=== PATIENT | female | born 1985 | race Caucasian/White ===

== ENCOUNTER 2017-09-28 03:47 | Inpatient (IN) ==
--- OUTSIDE RECORDS SUMMARY | 2017-09-28 06:12 | External Medical Summary | Continuity of Care Document ---
:1985 Author Organization [facility] Address [address] [place], [place] [id number] Phone Care Team Providers Name Role Phone Mark Ring MD Unavailable Unavailable Allergies, Adverse Reactions, Alerts Substance Reaction Severity Status iodine Hives Unknown Active Medications Medication Instructions Dosage Effective Dates Status Comments (start - stop) Rhophylac 1,500 - Active unit (300 mcg)/2 mL injection syringe 28 mg take 1 tablet by Not Available - Active iron-800 mcg oral route every tablet day Clindagel 1 % apply by topical Not Available - Active Topical route every day a thin layer to the affected area(s) Tylenol 325 mg take 1 tablet by - Active tablet oral route every 4 hours as needed lidocaine 2 % apply by Topical Not Available - No Longer mucosal jelly route every 6 Active hours as needed Problems Condition Effective Dates (start - stop) Clinical Status Follow-Up, Routine - Encntr for insulator apprentice exam (general) - (routine) w/o abn findings Oth related conditions, - third trimester Encounter For Screening For - Streptococcus B 36 weeks gestation of - Secondary amenorrhea Encounter for suprvsn of normal - , first trimester 13 weeks gestation of - Encounter for suprvsn of normal - , third trimester 28 weeks gestation of - Type O blood, Rh negative - Sciatica, left side - Sciatica, left side - Unspecified Lump In The Right Breast, - Unspecified Quadrant 34 weeks gestation of - Irregular Menses Pap Smear Screening, Cervix - Encounter for suprvsn of normal - , second trimester 20 weeks gestation of - Encounter for suprvsn of normal - , second trimester 24 weeks gestation of - Encounter for suprvsn of normal - , second trimester 16 weeks gestation of - Encounter for suprvsn of normal - , third trimester 30 weeks gestation of - Encounter for suprvsn of normal - , third trimester 34 weeks gestation of - Encounter for suprvsn of normal - , third trimester 37 weeks gestation of - Encounter for suprvsn of normal - , third trimester 38 weeks gestation of - Encounter for suprvsn of normal - , third trimester 32 weeks gestation of - Encounter For Screening For - Malformations 20 weeks gestation of - Active Procedures Procedure Date Immuniz admnin, 1 vac, sngl/combo 19 Yrs + TDAP VACCINE >7 IM OB Visit No Charge Results Test Name Date and Time Measure Units Reference Range Abnormal Flag Comments Panel Description: Bacteria identified in Urine by Culture Urine Culture, 16:38:00 Final report Routine Result 1 16:38:00 Comment Culture shows less than 10,000 colony forming units of bacteria permilliliter of urine. This colony count is not generally consideredto be clinically significant. Panel Description: Strep Gp B Culture Strep Gp B Negative Negative Centers for Disease Control Culture 16:38:00 and Prevention (CDC) and [place] Congressof Obstetricians and Gynecologists (ACOG) guidelines for prevention ofperinatal group B streptococcal (GBS) disease specify co-collection ofa vaginal and rectal swab specimen to maximize sensitivity of GBSdetection. Per the CDC and ACOG, swabbing both the lower vagina andrectum substantially increases the yield of detection compared withsampling the vagina alone. .Penicillin G, ampicillin, or cefazolin are indicated for intrapartumprophylaxis of GBS colonization. Reflex susceptibilitytesting should be performed prior to use of clindamycin only on GBSisolates from penicillin-allergic women who are considered a high riskfor anaphylaxis. Treatment with vancomycin without additional testingis warranted if resistance to clindamycin is noted. Advance Directives Directive Yes / No Effective Date File Name Unknown Encounters Encounter Practice Location Reason(s) Diagnoses Date Provider Care Team Description For Visit Members Kerri Maynard Encounter for Sep-1 Jose Referring In Womens suprvsn of normal 7-[address] [place]. 700 Provider: [facility] [place], , third 8 [facility] Box [email or web address] weeks Center Jose R, 1522, gestation of [place], 120, Medical [facility] [id number], [place], [facility] 120, [place] [id number] Caesar, tel: , . CHARIS, tel: [phone]. [id number] tel:[phone] Kerri Maynard Encounter for Sep-1 Jose Referring In Womens suprvsn of normal 0-201 [place]. 700 Provider: [facility] [place], , third 8 [facility] Box [email or web address] weeks Center Jose R, 1522, gestation of [place], 120, Medical [facility] [id number], [place], [facility] 120, [place] [id number] Caesar, tel: , . CHARIS, tel: [phone]. [phone] tel:[phone] Kerri Maynard Ot Boom-0 Jose Referring In Womens related 3-201 [place]. 700 Provider: [facility] [place], conditions, third 8 [facility] Box trimesterEncounte Center Jose R, 1522, r For [place], Screening For 120, Medical CHARIS, [facility] [id number], weeks gestation [place], [place], [place] of [id number] Caesar, tel: , [place]. [place], tel: [phone]. [id number] tel:[phone] Kerri Maynard Unspecified Lump Edilberto-2 Jose Referring In Womens In The Right 0-201 [place]. 700 Provider: Health [place], Breast, 8 Medical [place] PO Box Unspecified Center Jose R, 1522, [id number] weeks [place], gestation of 120, Medical [place], [place], [place] [id number], [place], [place], [place] [id number] Caesar, tel: , [place]. [place], tel: [phone]. [id number] tel:[phone] Kerri Maynard Encounter for Edilberto-1 Jose Referring In Womens suprvsn of normal 9-201 [place]. 700 Provider: Health [place], , third 8 Medical [place] PO Box [email or web address] weeks Center Jose Granado, 1522, gestation of [place], 120, Medical [facility] [id number], [place], [place], [place] [id number] Caesar, tel: , [place]. [place], tel: [phone]. [id number] tel:[phone] Kerri Maynard Encounter for Edilberto-0 Jose Referring In Womens suprvsn of normal 5-201 [place]. 700 Provider: Health [place], , third 8 Medical [place] PO Box [email or web address] weeks Center Jose Granado, 1522, gestation of [place], 120, Medical [facility] [id number], [place], [place], [place] [id number] Caesar, tel: , [place]. [place], tel: [phone]. [id number] tel:[phone] Kerri Maynard Encounter for May-2 Jose Referring In Womens suprvsn of normal 2-201 [place]. 700 Provider: Health [place], , third 8 Medical [place] PO Box [email or web address] weeks Center Jose Granado, 1522, gestation of [place], 120, Medical [facility] [id number], [place], [place], [place] [id number] Caesar, tel: , [place]. [place], tel: [phone]. [id number] tel:[phone] Kerri Maynard Encounter for May-0 Jose Referring In Womens suprvsn of normal 8-201 [place]. 700 Provider: [facility] [place], , third 8 Medical [place] PO Box [id number] weeks Center Jose R, 1522, gestation of [place], pregnancyType O 120, Medical [place], blood, Rh [place], [place] [id number], negative [place], [place] 120, [place] [id number] [place], tel: , [place]. [place], tel: [phone]. [id number] tel:[phone] Kerri Maynard Encounter for Apr-1 Jose Referring In Womens suprvsn of normal 0-201 [place]. 700 Provider: [facility] [place], , second 8 Medical [place] PO Box [email or web address] weeks Center Jose R, 1522, gestation of [place], 120, Medical [facility] [id number], [place], [place], [place] [id number] Caesar, tel: , [place]. [place], tel: [phone]. [id number] tel:[phone] Kerri Maynard Encounter for Mar-1 Jose Referring In Womens suprvsn of normal 4-201 [place]. 700 Provider: [facility] [place], , second 8 Medical [place] PO Box [email or web address] weeks Center Jose R, 1522, gestation of [place], 120, Medical [place] VIZCA[place], [place] [id number], [place], [place], [place] [id number] [place], tel: , [place]. [place], tel: [phone]. [phone] tel:[phone] Kerri Maynard Encounter For Mar-1 Jose Referring In Womens Ultrasound 4-201 [place]. 700 Provider: Health [place], Screening For 8 Medical [place] PO Box [id number] Center Jose R, 1522, weeks gestation [place], of 120, Medical [place] VIZCAINO, [place] [id number], [place], [place], [place] [id number] Caesar, tel: , [place]. [place], tel: [phone]. [id number] tel:[phone] Kerri Maynard Encounter for Apr- Jose Referring In Womens suprvsn of normal 5-201 [place]. 700 Provider: Health [place], , second 8 Medical [place] PO Box [id number] weeks Center Jose Granado, 1522, gestation of [place], 120, Medical [facility] [id number], [place], [place], [place] [id number] Caesar, tel:+ , [place]. [place], tel: [phone]. [id number] tel:[phone] Kerri Maynard Encounter for Mar- Jose Referring In Womens suprvsn of normal 5-201 [place]. 700 Provider: Neisha GIORDANO, , first 8 Medical [place] PO Box [email or web address] weeks Center Jose Granado, 1522, gestation of [place], 120, Medical [place] [facility] [id number], [place], [facility] 120, [place] [id number] Caesar, tel: , [place]. [place], tel: [phone]. [id number] tel:[phone] Kerri Maynard Dec-1 Jose In Womens 5-201 [place]. 700 Health [place], 7 [facility] PO Box Center 1522, [place], 120, [place] VIZCAINO, [id number], [place], [place] [id number] tel: , [place]. tel: [phone] Kerri Maynard Secondary Dec-0 Jose Referring In Womens amenorrhea 6-201 [place]. 700 Provider: Neisha GIORDANO, 7 [facility] PO Box [place] Jose Granado 1522, [place], 120, Medical [place] VIZCA[place], [place] [id number], [place], [facility] 120, [place] [id number] Caesar, tel: , [place]. [place], tel: [phone]. [id number] tel:[phone] Kerri Maynard Irregular Menses Nov-3 Reynolds Referring In Womens 0-201 [facility]. Provider: Health [place], [address] [place] [address] Jose R, 1522, [address], [facility], 120, Center [id number], [place], [facility] 120, [place] VIZCAINO, tel:[phone] [place], , [place]. [id number]. tel: tel:[phone] [facility] Mar-0 Jose Referring In Womens Follow-Up, 7-201 [place]. 700 Provider: Neisha GIORDANO, Routine 7 [facility] Jose R, 1522, , [place] [address] [place], 120, Medical [place] [facility] [id number], [place], [facility] 120, [place] [id number] Caesar, tel: , [place]. [place], tel: [phone]. [id number] tel:[phone] [facility] Sciatica, left Javier-1 Ojse Referring In Womens side 2-201 [place]. 700 Provider: Neisha GIORDANO, 7 [facility] Jose R, 1522, , [place] [address] [place], 120, Medical [facility] [id number], [place], [facility] 120, [place] [id number] Caesar, tel: , [place]. [place], tel: [phone]. [id number] tel:[phone] [facility] Javier-0 Jose Referring In Womens 3-201 [place]. 700 Provider: Neisha GIORDANO, 7 [facility] Jose R, 1522, , [place], 120, Medical [place] [facility] [id number], [place], [facility] 120, [place] [id number] Caesar, tel: , [place]. [place], tel: [phone]. [id number] tel:[phone] [facility] Sciatica, left Dec-2 Jose Referring In Womens side 7-201 [place]. 700 Provider: Neisha GIORDANO, 6 [facility] Jose R, 1522, , [place] [address] [place], 120, Medical [place] [facility] [id number], [place], [place], [place] [id number] Caesar, tel: , [place]. [place], tel: [phone]. [id number] tel:[phone] Kerri Maynard Oct-2 Jose Referring In Womens 5-201 [place]. 700 Provider: Neisha GIORDANO, 6 [facility] Box Center Jose Granado, 1522, , [place] [address] [place], 120, Medical [place] [facility] [id number], [place], [place], [place] [id number] Caesar, tel: , [place]. [place], tel: [phone]. [id number] tel:[phone] Kerri Maynard Sep-2 Jose Referring In Womens 7-201 [place]. 700 Provider: Neisha GIORDANO, 6 [facility] Jose Granado, 1522, , [place] [facility] [place], 120, Medical [place] [facility] [id number], [place], [place], [place] [id number] Caesar, tel:+ , [place]. [place], tel: [phone]. 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 700 Provider: Health [place], (routine) w/o abn 5 [facility] findingsPap Smear Center Jose Granado, 1522, Screening, Cervix , [place] [address] [place], 120, Medical [facility] [id number], [place], [place], [place] [id number] Caesar, tel: , [place]. [place], tel: [phone]. [phone] tel:[phone] Kerri Maynard Sep-0 Jose Referring In Womens 9-201 [place]. 700 Provider: Neisha GIORDANO, 5 [facility] Box Center Jose Granado, 1522, , [place] [address], 120, Medical [place] [facility] [id number], [place], [place], [place] [id number] Caesar, tel: , [place]. [place], tel: [phone]. [id number] tel:[phone] Kerri Maynard Nov-3 Jose In Womens 0-201 [place]. 700 Health [place], 1 Medical PO Box Center 1522, , [place], 120, [place], [place], [id number], [place], [id number] tel: , . [id number] tel: [phone] Kerri Maynard Dec- Jose In Womens 8-200 [place]. 700 Health [place], 7 Medical PO Box Center 1522, , [place], 120, [place], [place], [id number], [place], [id number] tel: , . [id number] tel: [phone] Family History Family Member Diagnosis Age At Onset No family history of Cardiovascular Disease Maternal Grandfather Diabetes mellitus No family history of Stroke No family history of Breast Cancer No family history of Ovarian Cancer Paternal Grandfather Cancer, lung No family history of Epilepsy Mother Thyroid Disorder Brother Blood Disorder No family history of Colon Cancer Father Hypercholesterolemia No family history of Osteoporosis Mother Hyperlipidemia No family history of Kidney Problems Maternal Grandfather Myocardial Infarction Immunizations Vaccine Date Status Comments Tdap completed Source: New Immunization Record Rhophylac completed Source: New Immunization Record Influenza, injectable, completed Note: Howard Moreno ; Source: quadrivalent, preservative free, Other Provider 3 yrs or older Tdap completed Source: New Immunization Record Rhophylac completed Source: New Immunization Record Influenza, injectable, completed Source: New Immunization Record quadrivalent, preservative free, 3 yrs or older Rhophylac completed Source: New Immunization Record Payers Payer name Insurance type Covered libertarian ID Authorization(s) UMR CI [id number] UMR CI [id number] UMR CI [id number] [place] [id number] UMR CI [id number] UMR CI [id number] UMR CI [id number] Social History Type Description Quantity Date Captured Alcohol Use Details No Caffeine Use Details Unknown Tobacco Use Status Unknown Smoking Status Never smoker Vital Signs Date / Height Weight BMI Pulse Blood Temperature Respiratory Body Head BMI Time: Rate Pressure Rate Surface Circumference percentile Area 218.90 32.8 134/86 -2018 lbs 0 mm[Hg] 4:48 kg/m PM eter (2) Chief Complaint And Reason For Visit Unknown Chief Complaint And Reason For Visit Reason For Referral Reason For Referral Unknown Plan Of Care Date Type Action Status Appointment Margie Mayra BOOKED Future Order: Radiology Order Breast Ultrasound Right Breast Ordered ([id number]) Future Order: Lab Order hCG,Beta Subunit, Qnt, Serum Ordered ([id number]) Future Order: Lab Order Pap Smear With HPV Reflex If ASCUS Ordered ([id number]) Future Order: Radiology Order Diagnostic Mammogram Right Breast, Ordered if indicated ([id number]) Future Order: Radiology Order Breast Ultrasound Right Breast Ordered ([id number]) Future Order: Radiology Order Complete OB Ultrasound > 14 Weeks Ordered ([id number]) Date Type Problem Goal Intervention Status Start Date Unknown. History Of Present Illness Encounter Date Complaint History Of Present Illness This patient has no known history of present illness Functional Status Encounter Date Functional Assessment Cognitive Assessment Unknown Medications Administered Medication Instructions Dosage Effective Dates (start - stop) Status Comments Drug Treatment Unknown Instructions Date Instruction Additional Information nutrition and weight gain counseling, special diet toxoplasmosis precautions (cats / raw meat) sexual activity exercise indications for ultrasound influenza vaccine environmental / work hazards travel use of any medications (including supplements, vitamins, herbs, OTC drugs) domestic violence seat belt use childbirth classes / hospital facilities hospital registration genetic testing new ob handbook HIV and other routine tests risk factors identified by history anticipated course of care
[2017-09-28] MEDS ORDERED: D5LR 1,000 ML IV PRN ×2 (06:14→06:16)
[2017-09-28] MEDS ORDERED: ACETAMINOPHEN 500 MG TABLET PO PRN ×2 (06:14→12:24)
[2017-09-28] MEDS ORDERED: MAG-AL + SIM ORAL LIQUID 30ml PO PRN ×2 (06:14→12:24)
[2017-09-28] MEDS ORDERED: CALCIUM CARBONATE Chewable 500mg TABLET PO PRN ×2 (06:14→12:24)
[2017-09-28] MEDS ORDERED: CARBOPROST 250 MCG/ML INJECTION IM PRN (06:14)
[2017-09-28] MEDS ORDERED: METHYLERGONOVINE 0.2 MG/ML INJECTION IM PRN (06:14)
[2017-09-28] MEDS ORDERED: LIDOCAINE 1% (10mg/ml) 2mL INJ PF SDV ID PRN (06:14)
[2017-09-28] MEDS ORDERED: OXYTOCIN DRIP 30 UNIT/500 ML ML IV PRN (06:16)
[2017-09-28] MEDS: LR 1,000 ML IV PRN ×2 (06:52→07:34)
[2017-09-28 06:56] VITALS: BMI 36.1
[2017-09-28 07:02] VITALS: O2SAT 99
[2017-09-28] MEDS ORDERED: DiphenhydrAMINE 50 MG/ML INJECTION IVP PRN ×2 (08:36→10:33)
[2017-09-28] MEDS ORDERED: ONDANSETRON 4 MG/2 ML INJECTION IVP PRN ×2 (08:36→10:33)
[2017-09-28] MEDS ORDERED: NALOXONE 0.4 MG/ML INJECTION IVP PRN ×2 (08:36→10:33)
[2017-09-28] MEDS ORDERED: ROPIVACAINE 1% 10MG/ML INJ 200 MG, SUFentanil 50 MCG in NS 100 ML EPI PRN (08:36)
--- NOTE | 2017-09-28 08:36 | Anesthesia Preoperative Report ---
Anesthesia Preoperative Record - Date and Time Date: 09/28/17 Preoperative Diagnosis: NPO Since Date: 09/28/17 NPO Since Time: 04:00 Allergies/Adverse Reactions: Allergies Allergy/AdvReac Type Severity Reaction Status Date / Time iodine Allergy Mild IV-HIVES Verified 03/26/16 23:54 - Vital Signs Vital Signs: Pulse Rate 79 09/28/17 06:57 Respiratory Rate 18 09/28/17 06:57 Blood Pressure 136/89 09/28/17 06:57 Pulse Oximetry 99 09/28/17 06:57 Height and Weight: Height 1.75 m Weight 111 kg Body Mass Index 36.1 - Medications Inpatient Medications: Current Medications Acetaminophen (Tylenol) 500 - 1,000 mg PO Q4H PRN PRN Reason: Pain Al Hydroxide/Mg Hydroxide (Maalox Plus) 30 ml PO Q3H PRN PRN Reason: Indigestion Calcium Carbonate (Tums) 500 - 1,000 mg PO Q2H PRN PRN Reason: Indigestion Carboprost Tromethamine (Hemabate) 250 mcg IM O PRN PRN Reason: .Downtime Dextrose/Lactated Ringer's (Dextrose 5%-Lactated Ringers) 1,000 mls @ 125 mls/ hr IV .Q8H PRN PRN Reason: Labor Last Admin: 09/28/17 06:51 Dose: 125 mls/hr Lactated Ringer's (Lactated Ringers) 1,000 mls @ 999 mls/hr IV .Q1H1M PRN Last Admin: 09/28/17 07:34 Dose: 999 mls/hr Oxytocin (Pitocin Drip) 30 unit in 500 mls @ 2 mls/hr IV .Q24H PRN; Protocol PRN Reason: Induction/Augmentation Last Admin: 09/28/17 06:50 Dose: 2 mls/hr Dextrose/Lactated Ringer's (Dextrose 5%-Lactated Ringers) 1,000 mls @ 125 mls/ hr IV .Q8H PRN PRN Reason: Labor Lidocaine HCl (Xylocaine-Mpf 1% Vial) 0.2 mg ID O PRN PRN Reason: IV Start Methylergonovine Maleate (Methergine) 0.2 mg IM O PRN Misoprostol (Cytotec) 800 mcg DE ONCE PRN Sodium Chloride (Iv Flush) 10 - 80 ml IV PRN PRN PRN Reason: Flushing Home Medications: Home Medications Medication Instructions Recorded Confirmed Type Vits W-Ca,Fe,Fa(<1MG) 1 tab PO DAILY #1 06/02/10 09/12/17 History () Clindamycin Phos/Benzoyl Perox TOP 2-3XD #0 03/17/16 History [Clindamycin-Benzoyl Perox 1-5%] Is Patient on Beta Anselmo?: No - Medical History Other History: Reports: Now - Surgical History Reproductive Surgery/Treatment: DENIES: Section Anesthesia Reactions: None Hx Family Anesthesia Reaction: No History of Motion Sickness: No - Social History Smoking Status: Never smoker Hx Chewing Tobacco Use: No Second Hand Exposure: No Substance Use Type: does not use Alcohol Intake Frequency: does not drink - Pertinent Findings Laboratory: CBC and BMP 09/28/17 06:40 - Physical Exam Respiratory Exam: Present: lungs clear, bilateral breath sounds equal Cardiovascular Exam: Present: regular rate and rhythm - Airway Assessment Mallampati Score: II TMD: 3 Fingerbreadths Neck Extension: good Overall Assessment: no airway concerns - ASA ASA Score: 2 - Plan Regional/Trunk Block: Epidural - Discussion Discussion: Discussed risks/options/alternatives of anesthesia and questions answered. Patient consents. Nursing pain assessment noted. Present for Discussion: spouse Attestation Statement: Prior to the delivery of any anesthetic medication, I examined the patient, developed the plan, obtained the patient's consent and discussed the risk and benefits of the procedure with the patient/guardian. - Additional Information Seen by Anesthesia: Yes
[2017-09-28] MEDS ORDERED: LIDOCAINE 2%/EPI 1:200,000 20ml SDV PF ONE (10:17)
[2017-09-28] MEDS ORDERED: HYDROCORTISONE 2.5% CREAM 30gm RECTALLY PRN (12:24)
[2017-09-28] MEDS ORDERED: OXYTOCIN DRIP 30 UNIT/500 ML ML IV SCH (12:24)
[2017-09-28] MEDS ORDERED: DiphenhydrAMINE 25 MG CAPSULE PO PRN (12:24)
[2017-09-28] MEDS ORDERED: RHOPHYLAC - PHARMACY CONSULT MC ONE (12:24)
[2017-09-28] MEDS: IBUPROFEN 800 MG TABLET PO PRN ×2 (13:42→21:32)
--- NOTE | 2017-09-28 14:49 | Anesthesia Postoperative Note ---
- Date and Time Date: 09/28/17 Time: 14:48 - Status Patient Participated in Evaluation: Patient Participated in Person Vital Signs: Pulse Rate 79 09/28/17 06:57 Respiratory Rate 18 09/28/17 06:57 Blood Pressure 136/89 09/28/17 06:57 Pulse Oximetry 99 09/28/17 06:57 Respiratory Function: Airway Patent, Regular Respirations Cardiovascular Function: Regular Pulse Mental Status: Alert and Oriented Pain Intensity: 0 Hydration: Taking PO Fluids Nausea/Vomiting: None Complications During Recover: None Apparent - Follow-Up Instructions Instructions: Per Surgeon
--- NOTE | 2017-09-28 15:57 | Labor and Delivery Note ---
DATE OF DELIVERY: 09/28/2017 DIAGNOSES 1. 32-year-old white female G6, P3 at 39.6 weeks gestational age. 2. Pitocin induction of labor for borderline blood pressures at term. 4. Epidural anesthesia. 5. Artificial rupture of membranes. 6. Nuchal cord x1. 7. Spontaneous vaginal delivery. 8. Female infant 8/9 Apgars, 4055 grams (8 pounds 15 ounces) (Jo Garsia) . This is a patient of mine who was brought in for an induction today secondary to borderline elevation of blood pressures at term. She is 39.6 weeks gestational age. Cervix was initially 3 cm. Pitocin reached a maximum of 16 milliunits a minute and then was turned down to 10 and then off. The patient got an epidural block very early in the process. Artificial rupture of membranes occurred at 09:17 a.m. Spontaneous vaginal delivery occurred at 11: 02 a.m. Infant was bulb suctioned after delivery of the head and then again after delivery of the body. There was a tight nuchal cord that was elevated and delivered through. Cord was allowed to drain for about 1-1/2 to 2 minutes and then it was doubly clamped and cut and the was initially placed on the mother's abdomen. Perineum was intact. Placenta delivered spontaneously. At the time of dictation, mother and are doing well. [facility]
[2017-09-28] MEDS: HYDROCODONE/APAP 5mg/325mg TABLET PO PRN ×2 (16:25→21:32)
[2017-09-29] MEDS: HYDROCODONE/APAP 5mg/325mg TABLET PO PRN ×3 (01:18→10:27)
[2017-09-29] MEDS: IBUPROFEN 800 MG TABLET PO PRN (06:09)
[2017-09-29] MEDS: SALINE FLUSH 10ml SYRINGE IV PRN ×2 (06:13→08:19)
[2017-09-29 06:39] VITALS: BP 119/75; PULSE 66; RESP 16; TEMP 97.9
[2017-09-29] MEDS ORDERED: RHO(D) IMMUNE GLOBULIN 300 MCG/2 ML INJECTION IVP ONE (07:30)
--- NOTE | 2017-09-29 07:33 | Pharmacy Consult ---
Pharmacy Consult-Rhophylac - Laboratory Information 09/28/17 09/28/17 09/28/17 06:40 13:32 17:15 Hgb /Adult Ratio 0.0000 Blood Type O Negative RhIG Candidate? Is a candidate - Consult Information Rh FACTOR CONSULT: Mother Blood Type = O- (Negative)) Child Blood Type = 0+ (Positive) Hgb / Adult Ratio = 0.0000 Will give Rho D Immunglobulin 300mcg IV x 1 dose. Thank you.
[2017-09-29] MEDS ORDERED: DOCUSATE CALCIUM 240 MG CAPSULE PO SCH (09:00)
--- NOTE | 2017-09-29 09:48 | Progress Note ---
OB PP Progress Note Free Text - Date Date: 09/29/17 - Progress Note Progress Note: vss af hgb stable no c/o dc to home today f/u 5-6wks q&a
== END 2017-09-29 14:56 | disposition home or self-care (01) | DRG 775 ==
LOC: MC 06:07
PROVIDERS: ADMIT Obstetrics & Gynecology; ATTEND Obstetrics & Gynecology